=== PATIENT | male | born 1960 | race African-American/Black ===

== ENCOUNTER → 2019-05-23 | Outpatient (CLI) | payer BC ==
[~2019-05-23] MED LIST: OMNIPAQUE 350 MG/ML, 75ML BOTTLE ONE
== END | disposition home or self-care (01) ==
LOC: RAD 17:01
PROVIDERS: ATTEND Family Medicine
DX: R05 Cough (principal); M54.9 Dorsalgia, unspecified
CPT/HCPCS: 71260; Q9967